=== PATIENT | female | born 1965 | race Caucasian/White ===

== ENCOUNTER 2021-05-12 05:41 | Day surgery (SDC) | payer OTHER ==
[2021-05-06 10:00] LABS: BASOPHILS # (AUTO) 0.1 X10'3 (0-0.2); BASOPHILS % (AUTO) 1.1 % (0-1); EOSINOPHILS # (AUTO) 0.1 X10'3 (0-0.9); EOSINOPHILS % (AUTO) 1.6 % (0-6); LYMPHOCYTES # (AUTO) 1.1 X10'3 (1.1-4.8); LYMPHOCYTES % (AUTO) 19.4 % (21-51); MEAN CORPUSCULAR HEMOGLOBIN 31.4 PG (27.0-31.0); MEAN CORPUSCULAR HGB CONC 34.2 g/dL (33.0-36.5); MEAN PLATELET VOLUME 8.7 FL (7.4-10.4); MONOCYTES # (AUTO) 0.4 X10'3 (0-0.9); MONOCYTES % (AUTO) 6.3 % (2-12); NEUTROPHILS # (AUTO) 4.2 X10'3 (1.8-7.7); NEUTROPHILS % (AUTO) 71.6 % (42-75); PRE OP HEMATOCRIT 39.5 % (35.0-45.0); PRE OP HEMOGLOBIN 13.5 g/dL (12.0-16.0); PRE OP PLATELET COUNT 259 X10'3 (140-440); RED CELL DISTRIBUTION WIDTH 13.3 % (11.5-14.5)
[2021-05-06 10:31] LABS: ALBUMIN/GLOBULIN RATIO 1.1 (1.1-1.5); ALKALINE PHOSPHATASE 87 IU/L (46-116); BLOOD UREA NITROGEN 12 MG/DL (7-18); BUN/CREATININE RATIO 13.8 (6.6-38.0); CALCIUM 9.1 MG/DL (8.5-10.1); CHLORIDE 103 MMOL/L (99-107); CREATININE 0.87 MG/DL (0.40-0.90); PRE OP ALT 34 U/L (30-65); PRE OP ANION GAP 9 (8-16); PRE OP AST 25 U/L (10-37); PRE OP BILIRUB, TOTAL 0.3 MG/DL (0.0-1.0); PRE OP GLUCOSE 96 MG/DL (70-104); PRE OP POTASSIUM 3.8 MMOL/L (3.4-5.1); PRE OP SODIUM 140 MMOL/L (135-145); TOTAL CARBON DIOXIDE 27.6 MMOL/L (24-32); TOTAL PROTEIN 7.8 G/DL (6.4-8.2); eGFR 68 ML/MIN
[2021-05-12] VITALS (8 sets, daily range): BP systolic 136–155; BP diastolic 75–94
[~2021-05-12] VITALS: Ht 170.2 cm; Wt 83.0 kg
[~2021-05-12 05:41] MED LIST: ACET-1015 PO; EST1T PO; KEN0.1O TP; famotidine 20mg tablet PO ONE; ringers solution, lacted 1,000 ML IV SCH
[2021-05-12] MEDS ORDERED: sevoflurane 250ml liquid IH ONE (06:00)
[2021-05-12] MEDS ORDERED: ketorolac trometh. 30mg/ml inj. ONE (06:58)
[2021-05-12] MEDS ORDERED: BUPIVAcaine/PF 2.5 mg/ml (0.25%) 30ml vial ONE (06:58)
[2021-05-12] MEDS ORDERED: hydrALAZINE 20mg/ml inj. IV PRN (07:10)
[2021-05-12] MEDS ORDERED: acetaminophen 1,000mg/100ml IV 100 ML IV PRN (07:10)
[2021-05-12] MEDS ORDERED: labetalol 20mg/4ml (5mg/ml) syringe IV PRN (07:10)
[2021-05-12] MEDS ORDERED: ondansetron/PF 4mg/2ml inj IV PRN (07:10)
[2021-05-12] MEDS ORDERED: meperidine/PF 25mg/ml syringe IV PRN ×3 (07:10)
[2021-05-12] MEDS ORDERED: morphine 4 MG/ML inj SYRINge IV PRN (07:10)
[2021-05-12] MEDS ORDERED: morphine 2 MG/ML inj. syringe IV PRN (07:10)
[2021-05-12] MEDS ORDERED: ringers solution, lacted 1,000 ML IV SCH (07:10)
[2021-05-12] MEDS ORDERED: proCHLORperazine 10 MG/2 ml inj IV PRN (07:10)
[2021-05-12] MEDS ORDERED: cloNIDine hcl/PF 100mcg/ml inj ONE (07:14)
[2021-05-12] MEDS ORDERED: midazolam 1 mg/ML 2ml injection ONE (07:26)
[2021-05-12] MEDS ORDERED: LIDOcaine 2% (20mg/ml) 5ml vial ONE (07:27)
[2021-05-12] MEDS ORDERED: ROPIVAcaine 0.5% (5mg/ml) 30ml vial ONE (07:27)
[2021-05-12] MEDS ORDERED: dexamethasone sod phosphate 4mg/ml inj. ONE (07:27)
[2021-05-12] MEDS ORDERED: propofol inj 20 ML IV ONE (07:27)
[2021-05-12] MEDS ORDERED: fentaNYL/PF 50MCG/1 ML 2ML syringe ONE (07:27)
[2021-05-12] MEDS ORDERED: triamcinolone acetonide 40mg/ml inj ONE (07:31)
[2021-05-12] MEDS ORDERED: ondansetron/PF 4mg/2ml inj ONE (07:32)
--- NOTE | 2021-05-12 07:45 | NUR ---
Received from OR via [facility], accompanied by Anesthesiologist KALEY and report given by Anesthesiolgist. NO RESP DISTRESS.SKIN WARM AND DRY. BANDAID TO LEFT KNEE CDI. ICE APPLIED. TOES WIGGLE, AWARM. BRISK CAP REFILL. VSS. NO COMPLAINTS OF PAIN.
[2021-05-12] MEDS ORDERED: HYDROcodone/acetaminophen 10/325mg tab PO PRN (08:00)
--- NOTE | 2021-05-12 08:05 | NUR ---
TOOK OVER PATIENTS CARE AFTER REPORT TAKEN FROM [facility]. Addendum: 05/12/21 at 0823 by Samantha Gaston RN Amended: Links added.
--- NOTE | 2021-05-12 08:42 | NUR ---
PATIENT DISCHARGED FROM PACU IN STABLE CONDITION AFTER WRITTEN AND VERBAL DISCHARGE INSTRUCTIONS GIVEN. PATIENT LEFT FACILITY VIA WHEELCHAIR WITH RN. Addendum: 05/12/21 at 0853 by Samantha Gaston RN Amended: Links added.
== END 2021-05-12 08:42 | disposition home or self-care (01) ==
LOC: PAS 05:41
PROVIDERS: ATTEND Orthopaedic Surgery
DX: M24.562 Contracture, left knee (principal); G89.29 Other chronic pain; Z88.8 Allergy status to other drugs, medicaments and biological substances; Z72.89 Other problems related to lifestyle; Z96.652 Presence of left artificial knee joint; Z90.710 Acquired absence of both cervix and uterus; Z98.890 Other specified postprocedural states; Z20.822 Contact with and (suspected) exposure to COVID-19; Z79.899 Other long term (current) drug therapy
CPT/HCPCS: 20610; 27570; 36415; 64447; 80053; 82948; 85025; 93005; J0735; J1100; J1885; J2250; J2405; J2704; J2795; J3010; J3301; J3490; J7120; U0003; U0005; Z7506; Z7512; 76942; A4618; A6449